=== PATIENT | male | born 1990 | race African-American/Black ===

== ENCOUNTER 2018-01-06 02:35 | Emergency (ER) | payer SELFPAY ==
[2018-01-06] MEDS: cefTRIAXone IM 250 MG VIAL IM (03:05)
[2018-01-06] MEDS: AZITHROMYCIN 250 MG TABLET. PO (03:05)
== END 2018-01-06 03:40 | disposition home or self-care (01) ==
LOC: ER 02:35
DX: A56.01 Chlamydial cystitis and urethritis (principal)
CPT/HCPCS: 87491; 87591; 99283; Q0144